=== PATIENT | male | born 1950 | race Caucasian/White ===

== ENCOUNTER 2020-12-25 08:46 | Emergency (ER) | payer MEDICARE ==
[~2020-12-25] VITALS: Ht 182.9 cm; Wt 96.5 kg
[2020-12-25] MEDS ORDERED: OMEP40CA4 PO (08:53)
[2020-12-25] MEDS ORDERED: LIDOCAINE 2% 5ML JELLY UROJET TOP ONE (09:45)
[2020-12-25 10:45] LABS: CALCIUM LEVEL 8.5 MG/DL (8.8-10.2); CREATININE FOR GFR 1.42 MG/DL (0.70-1.30); GLOMERULAR FILTRATION RATE 52.8 (>49)
[2020-12-25] MEDS ORDERED: FLOM0.4C39 PO (11:52)
[2020-12-25] MEDS ORDERED: POTA20TA6 PO (11:53)
[2020-12-25] MEDS ORDERED: CIPR-249 PO (11:53)
[2020-12-25 12:08] VITALS: BP 147/87
== END 2020-12-25 12:10 | disposition home or self-care (01) ==
LOC: M ED 08:46
DX: R33.9 Retention of urine, unspecified (principal); N39.0 Urinary tract infection, site not specified; E87.6 Hypokalemia; I10 Essential (primary) hypertension; K21.9 Gastro-esophageal reflux disease without esophagitis; Z79.899 Other long term (current) drug therapy
CPT/HCPCS: 36415; 51702; 80047; 80048; 81001; 87086; 99284; G0103

== ENCOUNTER 2021-01-17 11:18 | Emergency (ER) | payer MEDICARE ==
[~2021-01-17] VITALS: Ht 182.9 cm; Wt 95.5 kg
[~2021-01-17 11:18] MED LIST: CIPR-249 PO; FLOM0.4C39 PO; OMEP40CA4 PO; POTA-151 PO
[2021-01-17 11:55] LABS: BASO # 0.1 10^3/uL (0.0-0.2); BASO % 0.8 % (0.0-1.0); EOS # 0.2 10^3/uL (0.0-0.5); EOS % 1.9 % (0.0-3.0); HEMOGLOBIN 15.7 g/dl (13.5-17.5); LYMPH # 0.9 10^3/uL (1.5-5.0); LYMPH % 11.9 % (24.0-44.0); MEAN CORPUSCULAR HEMOGLOBIN 32.4 pg (27.0-33.0); MEAN CORPUSCULAR HGB CONC 34.1 g/dl (32.0-36.5); MEAN CORPUSCULAR VOLUME 94.8 fl (80.0-96.0); MONO # 0.4 10^3/uL (0.0-0.8); MONO % 4.9 % (2.0-8.0); NEUTROPHILS # 6.2 10^3/uL (1.5-8.5); NEUTROPHILS % 80.1 % (36.0-66.0); PLATELET COUNT, AUTOMATED 305 10^3/uL (150-450); RED BLOOD COUNT 4.85 10^6/uL (4.30-6.10); WHITE BLOOD COUNT 7.7 10^3/uL (4.0-10.0)
[2021-01-17 12:31] LABS: ALBUMIN 4.1 GM/DL (3.2-5.2); BILIRUBIN,DIRECT 0.2 MG/DL (0.0-0.2); BILIRUBIN,TOTAL 0.7 MG/DL (0.2-1.0); CALCIUM LEVEL 8.8 MG/DL (8.8-10.2); CREATININE FOR GFR 1.34 MG/DL (0.70-1.30); FREE T4 1.09 NG/DL (0.76-1.46); GLOMERULAR FILTRATION RATE 56.4 (>49); POTASSIUM SERUM 3.3 MEQ/L (3.5-5.1); THYROID STIMULATING HORMONE 1.87 uIU/ML (0.358-3.740); TOTAL PROTEIN 7.8 GM/DL (6.4-8.2)
[2021-01-17] MEDS ORDERED: ASPIRIN 325 MG TAB PO ONE (12:35)
[2021-01-17] MEDS: NITROGLYCERIN 0.4 MG SUBL TABLET SL PRN ×2 (13:22→15:38)
[2021-01-17] MEDS ORDERED: ISOVUE-370 76% 100ML VIAL As Ordered ONE (13:28)
[2021-01-17 13:30] LABS: CK-MB VALUE MASS 6.9 NG/ML (<3.6); MB/CK RELATIVE INDEX 5.61 (< OR =4); TROPONIN I 0.9 NG/ML (< 0.10)
[2021-01-17 15:10] LABS: RSV AMPLIFICATION NEGATIVE (NEGATIVE)
[2021-01-17] MEDS ORDERED: METOPROLOL SUCC *XL* 25MG TAB (TopROL *XL*) PO ONE (15:15)
[2021-01-17] MEDS ORDERED: ENOXAPARIN 100MG/1ML SYRINGE (J1650 PER 10MG) SC ONE (15:15)
[2021-01-17 19:45] VITALS: BP 163/94
== END 2021-01-17 19:59 | disposition short-term general hospital (02) ==
LOC: M ED 11:18
DX: I20.0 Unstable angina (principal); I10 Essential (primary) hypertension; K21.9 Gastro-esophageal reflux disease without esophagitis; J44.9 Chronic obstructive pulmonary disease, unspecified; K76.0 Fatty (change of) liver, not elsewhere classified; K80.20 Calculus of gallbladder without cholecystitis without obstruction; N28.1 Cyst of kidney, acquired
CPT/HCPCS: 71045; 71275; 80048; 80076; 82550; 82553; 83690; 84439; 84443; 84484; 85025; 87631; 93005; 93041; 94760; 99285; J1650; Q9967